=== PATIENT | female | born 1990 | race Caucasian/White ===

== ENCOUNTER 2016-09-29 10:58 | Emergency (ER) | payer MEDICAID ==
[2016-09-29] MEDS ORDERED: DEXAMETHASONE 10 MG/ML VIAL PO STA (12:20)
[2016-09-29] MEDS ORDERED: DEXAMETHASONE 10 MG/ML VIAL ONE (12:24)
== END 2016-09-29 12:32 | disposition home or self-care (01) ==
DX: J03.91 Acute recurrent tonsillitis, unspecified (principal); Z87.891 Personal history of nicotine dependence